=== PATIENT | male | born 1985 | race African-American/Black ===

== ENCOUNTER 2018-01-13 13:27 | Emergency (ER) | payer BC ==
[~2018-01-13] VITALS: Ht 172.7 cm; Wt 56.7 kg
[2018-01-13 13:55] VITALS: BP 123/69
[2018-01-13 14:00] VITALS: BP 150/76
--- NOTE | 2018-01-13 15:19 | Emergency Room Report ---
History of Present Illness General Chief Complaint: Pain Source: Patient Present Illness HPI 32-year-old male presents to the emergency department initially reporting 8 out of 10 in severity right hip pain. Upon further questioning patient describes history of hemorrhoids requiring surgical removal and was told that he has "fissures "patient states that he is had progressive pain times one week he denies fevers, chills, anal discharge, constipation, diarrhea. Patient states that he regularly attempts to keep his bowel movement on the softer side due to hemorrhoid history. Patient reports this sensation starts "deep/internally on the right side of the rectum and radiates outward. Patient denies blood in the stool or bright red blood per rectum. Patient denies recent rectal/anal trauma. He denies abdominal pain or tenderness. Patient states that he notices the pain mostly when standing. Does not notice significant difference with bowel movements. He denies trauma or fall. Allergies: Coded Allergies: No Known Allergies (Unverified , 01/13/18) Patient History Past Medical History: see triage record Past Surgical History: none Pertinent Family History: none Reviewed Nursing Documentation: PMH: Agreed; PSxH: Agreed Nursing Documentation-PMH Past Medical History: No Stated History Review of Systems All Other Systems: negative except mentioned in HPI Physical Exam Vital Signs Date Time Temp Pulse Resp B/P (MAP) Pulse Ox O2 Delivery O2 Flow Rate FiO2 01/13/18 13:43 98.1 68 16 123/69 100 Room Air 98.1 Sp02 EP Interpretation: reviewed, normal General Appearance: no apparent distress, alert, GCS 15, non-toxic Head: normocephalic, atraumatic ENT: hearing grossly normal, normal voice Neck: full range of motion Respiratory: lungs clear, normal breath sounds, speaking full sentences Cardiovascular #1: regular rate, rhythm Gastrointestinal: non tender, soft Rectal: normal rectal tone, other - no hemmorrhoids noted, no appreciable mass or ttp. Musculoskeletal: back normal, gait/station normal, normal range of motion, non- tender Neurologic: alert, oriented x3, responsive, motor strength/tone normal, sensory intact, speech normal, grossly normal Psychiatric: judgement/insight normal Skin: normal color, no rash, warm/dry, well hydrated Lymphatic: no adenopathy Medical Decision Making PA Attestation Dr. Coelho is my supervising Physician whom patient management has been discussed with. Diagnostic Impression: Primary Impression: Anal or rectal pain Additional Impression: Hx of hemorrhoids ER Course Pt. Declines CT. requests GI referal info Pt. presents to the ED c/o constipation and rectal pain x 2days. Denies blood Ddx considered but are not limited to constipation , anal fissure, perianal abscess, per-rectal abscess, rectal wall tear, thrombosed hemorrhoid, hemorrhoid. Vital signs: are WNL, pt. is afebrile H&PE are most consistent with possible perirectal abscess due to hx of symptoms. On physical exam there are no visible external hemorrhoids, on palpation I do not palpate any appreciable mass, and the patient does not demonstrate negative again changes in pain during the exam. - Cleaning Porter Was: MUNIRA Stark ORDERS: --Discussed with patient that for definitive evaluation CT imaging with contrast is necessary. Patient states that he does not want contrast and that he will wait and follow up with a GI specialist. Patient states that "I am here just to have something for the pain and I know I need to follow-up" Discussed with this patient that since he is declining the recommended imaging needed for full evaluation and that he will need to sign AMA. ED INTERVENTIONS: - Discussed the patient's self care interventions for hemorrhoids, encouraged evaluation to completely r/o abscess. I discussed with the patient the possible complications can arise I also discussed symptoms that he should watch for that would indicate significant infection or serious complications. reiterated need for CT, and that he should return promptly if he changes his mind, or his symptoms worsen or new symptoms appear. DISPOSITION: - At this time the patient declines CT imaging and is requesting to leave AGAINST MEDICAL ADVICE. I believe that this patient has the capacity to make decisions on He/She own. I discussed with the patient the risks of leaving AMA. Some of these risks include delay in diagnosis and treatment, as well as worsening of symptoms, organ damage, and permanent disability or even . After discussing these risks with the patient. He/She continues to express His/ Her want to leave AGAINST MEDICAL ADVICE. I encouraged the patient to return at any time, and that she will be welcome here in the emergency department to continue medical management. Last Vital Signs Date Time Temp Pulse Resp B/P (MAP) Pulse Ox O2 Delivery O2 Flow Rate FiO2 01/13/18 13:55 98.1 89 16 123/69 100 Room Air 98.1 Disposition: AGAINST MEDICAL ADVICE Condition: Stable Scripts Docusate Sodium* (COLACE*) 100 Mg Capsule 100 MG ORAL THREE TIMES A DAY for 7 Days, #21 CAP Prov: Toyin Matthews 01/13/18 Acetaminophen* (TYLENOL EXTRA STRENGTH*) 500 Mg Tablet 500 MG ORAL Q6H, #20 TAB 0 Refills Prov: Toyin Matthews 01/13/18 Benzocaine (ANACAINE) 30 Gm Oint...g. 1 APPLIC TP TID, #30 GM Prov: Toyin Matthews 01/13/18 Hydrocortisone Hc 2.5% Cream (ANUSOL-HC 2.5% CREAM) Y Cr 1 APPLIC RC TID, #30 GM Prov: Toyin Matthews 01/13/18 Patient Instructions: Medical Screening Exam, Perirectal Abscess Additional Instructions: Take medications as directed. Follow up with a GI SPECIALIST within 3 days, even if your symptoms have resolved. --Please review list of primary care clinics, if you do not already have a primary care provider Return sooner to ED if new symptoms occur, or current symptoms become worse. - Please note that this Emergency Department Report was dictated using [id number] scribe technology software, occasionally this can lead to erroneous entry secondary to interpretation by the dictation equipment. Toyin Matthews January 13, 2018 15:19
[2018-01-13] MEDS ORDERED: ANUSOL-HC30 GM RC (15:23)
[2018-01-13] MEDS ORDERED: TYLENOL EXTRA500 MG ORAL (15:23)
[2018-01-13] MEDS ORDERED: COLACE100 MG ORAL (15:23)
[2018-01-13] MEDS ORDERED: [UNRECOGNIZED DRUG - OTHER] TP (15:23)
== END 2018-01-13 15:00 | disposition left against medical advice (07) ==
LOC: EMR 14:59
DX: K62.89 Other specified diseases of anus and rectum (principal); Z87.19 Personal history of other diseases of the digestive system
CPT/HCPCS: 99284